=== PATIENT | female | born 1955 | race African-American/Black ===

== ENCOUNTER 2017-02-25 15:12 | Emergency (ER) | payer SELFPAY ==
[~2017-02-25] VITALS: Ht 167.6 cm; Wt 81.8 kg
[2017-02-25] MEDS ORDERED: LISI-661 PO (15:13)
[2017-02-25] MEDS ORDERED: HydrOXYzine PAMOATE 50 MG CAPSULE PO ONE (16:15)
[2017-02-25 16:39] LABS: BASOPHILS % (AUTO) 0.6 % (0.0-2.0); EOSINOPHILS % (AUTO) 2.2 % (1.0-6.0); HEMATOCRIT 42.5 % (36-46); HEMOGLOBIN 14.4 g/dL (12.0-16.0); LYMPHOCYTES # (AUTO) 1.7 K/uL (1.0-4.8); LYMPHOCYTES % (AUTO) 27.7 % (22.0-44.0); MEAN CORPUSCULAR HEMOGLOBIN 30.3 pg (26.0-34.0); MEAN CORPUSCULAR HGB CONC 33.9 G/dL (31.0-37.0); MEAN CORPUSCULAR VOLUME 89 fL (80-100); MONOCYTES # (AUTO) 0.3 K/uL (0.1-1.0); MONOCYTES % (AUTO) 5.2 % (2.0-9.0); NEUTROPHILS % (AUTO) 64.3 % (40.0-70.0); PLATELET COUNT (AUTO) 296 K/uL (150-450); RED BLOOD CELL COUNT(AUTO) 4.76 MIL/uL (4.00-5.20); RED CELL DISTRIBUTION WIDTH 13.4 % (11.5-14.5)
[2017-02-25 16:47] LABS: CALCIUM, TOTAL 9.4 mg/dL (8.8-10.5); CREATININE 0.97 mg/dL (0.60-1.30); POTASSIUM 3.5 mmol/L (3.5-5.1)
[2017-02-25 17:13] VITALS: BP 142/93
== END 2017-02-25 17:45 | disposition home or self-care (01) ==
LOC: EMS 15:14
DX: I10 Essential (primary) hypertension (principal); F41.9 Anxiety disorder, unspecified
CPT/HCPCS: 93005; 99285